=== PATIENT | female | born 1950 | race Caucasian/White ===

== ENCOUNTER 2016-12-17 00:05 | Emergency (ER) | payer MEDICARE ==
[2016-12-17] MEDS ORDERED: DUONEB INH ONE (00:44)
== END 2016-12-17 06:19 ==
LOC: ER 00:05
DX: J40 Bronchitis, not specified as acute or chronic (principal); J44.1 Chronic obstructive pulmonary disease with (acute) exacerbation; Z79.899 Other long term (current) drug therapy; Z79.82 Long term (current) use of aspirin; R06.00 Dyspnea, unspecified; J90 Pleural effusion, not elsewhere classified; J98.11 Atelectasis; J18.9 Pneumonia, unspecified organism; Z79.4 Long term (current) use of insulin; Z79.01 Long term (current) use of anticoagulants
CPT/HCPCS: 36415; 36600; 71010; 80053; 82553; 82803; 83880; 84484; 85025; 85610; 85730; 93005; 94640

== ENCOUNTER 2016-12-31 13:03 | Inpatient (IN) | payer MEDICARE ==
[~2016-12-31] VITALS: Ht 149.9 cm; Wt 88.0 kg
[2016-12-31] MEDS ORDERED: ACETAMINOPHEN 325 MG TAB ONE (13:29)
[2016-12-31] MEDS ORDERED: CEFTRIAXONE 1 GM VIAL ONE (16:49)
[2016-12-31] MEDS ORDERED: SODIUM CHLORIDE 0.9% 1,000 ML ONE (16:49)
[2016-12-31] MEDS ORDERED: METRONIDAZOLE 500 MG TAB ONE (17:48)
[2016-12-31] MEDS ORDERED: BISACODYL 10 MG SUPP RECTAL PRN (18:40)
[2016-12-31] MEDS ORDERED: SALINE FLUSH 10 ML FLUSH PRN (18:40)
[2016-12-31] MEDS ORDERED: ONDANSETRON 4 MG VIAL IV PRN (18:40)
[2016-12-31] MEDS ORDERED: ALU/MAG/SIM 30 ML UDC PO PRN (18:40)
[2016-12-31] MEDS ORDERED: MAG HYDROX 30 ML UDC PO PRN (18:40)
[2016-12-31] MEDS ORDERED: BISACODYL EC 5 MG TAB PO PRN (18:40)
[2016-12-31] MEDS ORDERED: GLUCAGON 1 MG VIAL IM PRN (18:50)
[2016-12-31] MEDS ORDERED: DEXTROSE 50% SYRINGE 50 ML IV PRN (18:50)
[2016-12-31] MEDS: SODIUM CHLOR 0.9% W/KCL 20MEQ 1,000 ML IV SCH (19:43)
[2016-12-31] MEDS: SALINE FLUSH 10 ML FLUSH SCH (20:00)
[2016-12-31 20:35] VITALS: BP_SYST 150; RESP 18; TEMP 101
[2016-12-31 20:43] VITALS: BMI 40.2
[2016-12-31 20:59] VITALS: RESP 18
[2016-12-31] MEDS: ACETAMINOPHEN 325 MG TAB PO PRN (21:14)
[2016-12-31] MEDS: METRONIDAZOLE 500MG/100ML 100 ML IV SCH (23:29)
[2017-01-01] VITALS (19 sets, daily range): BP systolic 112–164; RESP 15–24; TEMP 98–101.1; Ht 149.9 cm; Wt 88.0 kg
[2017-01-01] MEDS: NEB-ALBUTEROL 2.5 MG/3 ML INH PRN ×2 (04:37→14:08)
[2017-01-01] MEDS: SODIUM CHLORIDE 0.9% FLUSH BAG 500 ML IV SCH (06:00)
[2017-01-01] MEDS: SODIUM CHLOR 0.9% W/KCL 20MEQ 1,000 ML IV SCH (06:03)
[2017-01-01] MEDS: METRONIDAZOLE 500MG/100ML 100 ML IV SCH (06:03)
[2017-01-01] MEDS: ACETAMINOPHEN 325 MG TAB PO PRN (06:04)
[2017-01-01] MEDS ORDERED: ACETAMINOPHEN 325 MG TAB PO PRN ×2 (07:15→19:15)
[2017-01-01] MEDS: SALINE FLUSH 10 ML FLUSH SCH ×2 (07:49→23:48)
[2017-01-01] MEDS ORDERED: KCL 20 MEQ/15 ML UDC GTUBE ONE (08:20)
[2017-01-01] MEDS ORDERED: CEFTRIAXONE 1 GM in SODIUM CHLORIDE 0.9% 50 ML IV SCH (09:00)
[2017-01-01] MEDS ORDERED: FUROSEMIDE 10 MG/ML GTUBE SCH (09:00)
[2017-01-01] MEDS: LEVEMIR INSULIN SUBQ SCH (09:15)
[2017-01-01] MEDS: FAMOTIDINE 20 MG TAB PO SCH ×2 (09:15→21:00)
[2017-01-01] MEDS: ASPIRIN 81 MG CHEW TAB GTUBE SCH (09:15)
[2017-01-01] MEDS: VANCOMYCIN SUSP 250 MG/5 ML UDC PO SCH ×4 (09:16→21:00)
[2017-01-01] MEDS: SACCHA BOULARDII 250MG CAP PO SCH ×3 (09:16→21:00)
[2017-01-01] MEDS: ESCITALOPRAM 10 MG TAB GTUBE SCH (09:16)
[2017-01-01] MEDS: DUONEB INH PRN ×2 (11:04→19:07)
[2017-01-01] MEDS: ALPRAZOLAM 0.25 MG TAB GTUBE PRN (12:05)
[2017-01-01] MEDS ORDERED: STOP IV XX SCH (15:15)
[2017-01-01] MEDS: KCL 20 MEQ/15 ML UDC GTUBE SCH ×2 (16:59→23:49)
[2017-01-01] MEDS ORDERED: LIDOCAINE 2% 20 ML ONE (20:15)
[2017-01-01] MEDS ORDERED: MISSING DOSE XX ONE (20:50)
[2017-01-01] MEDS ORDERED: OPTIRAY 350 100 ML VIAL HMH IV ONE (22:26)
[2017-01-01] MEDS ORDERED: ALU/MAG/SIM 30 ML UDC GTUBE PRN (22:40)
[2017-01-01] MEDS ORDERED: *PATIENT RECEIVING TUBE FEEDS, ASSESS/ADJUST MEDICATIONS JTUBE SCH (22:40)
[2017-01-01] MEDS ORDERED: ACETAMINOPHEN 325 MG TAB GTUBE PRN (22:45)
[2017-01-01] MEDS: NEB-NACL 3% 4 ML NEBU INH SCH (23:13)
[2017-01-01] MEDS: NEB-ALBUTEROL 2.5 MG/3 ML INH SCH (23:13)
[2017-01-01] MEDS: VANCOMYCIN SUSP 250 MG/5 ML UDC GTUBE SCH (23:50)
[2017-01-02] VITALS (18 sets, daily range): BP systolic 125–168; RESP 14–29; TEMP 98.2–99.6
[2017-01-02] MEDS: NEB-NACL 3% 4 ML NEBU INH SCH ×4 (05:18→23:27)
[2017-01-02] MEDS: NEB-ALBUTEROL 2.5 MG/3 ML INH SCH ×5 (05:18→23:27)
[2017-01-02] MEDS: SODIUM CHLORIDE 0.9% FLUSH BAG 500 ML IV SCH (06:00)
[2017-01-02] MEDS ORDERED: Furosemide 40 MG/4 ML VIAL IV ONE ×2 (07:20→07:50)
[2017-01-02] MEDS: SALINE FLUSH 10 ML FLUSH SCH ×2 (08:37→20:06)
[2017-01-02] MEDS: LEVEMIR INSULIN SUBQ SCH (08:38)
[2017-01-02] MEDS: FAMOTIDINE 20 MG TAB GTUBE SCH ×2 (08:38→20:07)
[2017-01-02] MEDS: SACCHA BOULARDII 250MG CAP GTUBE SCH ×3 (08:38→20:07)
[2017-01-02] MEDS: ASPIRIN 81 MG CHEW TAB GTUBE SCH (08:38)
[2017-01-02] MEDS: VANCOMYCIN SUSP 250 MG/5 ML UDC GTUBE SCH ×4 (08:39→20:06)
[2017-01-02] MEDS: ESCITALOPRAM 10 MG TAB GTUBE SCH (08:39)
[2017-01-02] MEDS: KCL 20 MEQ/15 ML UDC GTUBE SCH ×3 (08:39→20:08)
[2017-01-02] MEDS: ALPRAZOLAM 0.25 MG TAB GTUBE PRN ×2 (08:51→20:23)
[2017-01-02] MEDS: CHOLESTYRAMINE 4 GM PKT GTUBE SCH ×2 (09:35→20:08)
[2017-01-02] MEDS ORDERED: Furosemide 20 MG/2 ML VIAL IV SCH (12:00)
[2017-01-02] MEDS: ACETAMINOPHEN 650 MG/20.3 ML UDC GTUBE PRN (15:45)
[2017-01-02] MEDS: Furosemide 20 MG/2 ML VIAL IV SCH ×2 (17:22→23:40)
[2017-01-03 03:00] VITALS: BP_SYST 170; RESP 18; TEMP 98.9
[2017-01-03] MEDS: NEB-NACL 3% 4 ML NEBU INH SCH ×4 (05:06→22:43)
[2017-01-03] MEDS: NEB-ALBUTEROL 2.5 MG/3 ML INH SCH ×5 (05:06→22:43)
[2017-01-03] MEDS: SODIUM CHLORIDE 0.9% FLUSH BAG 500 ML IV SCH (05:59)
[2017-01-03 07:15] VITALS: BP_SYST 158; RESP 18; TEMP 98.7
[2017-01-03] MEDS: ACETAMINOPHEN 650 MG/20.3 ML UDC GTUBE PRN ×2 (08:04→15:48)
[2017-01-03] MEDS: CHOLESTYRAMINE 4 GM PKT GTUBE SCH ×3 (08:05→19:53)
[2017-01-03] MEDS: LEVEMIR INSULIN SUBQ SCH (08:05)
[2017-01-03] MEDS: ESCITALOPRAM 10 MG TAB GTUBE SCH (08:06)
[2017-01-03] MEDS: ASPIRIN 81 MG CHEW TAB GTUBE SCH (08:06)
[2017-01-03] MEDS: FAMOTIDINE 20 MG TAB GTUBE SCH ×2 (08:06→19:51)
[2017-01-03] MEDS: Furosemide 20 MG/2 ML VIAL IV SCH (08:06)
[2017-01-03] MEDS: SACCHA BOULARDII 250MG CAP GTUBE SCH ×3 (08:06→19:51)
[2017-01-03] MEDS: VANCOMYCIN SUSP 250 MG/5 ML UDC GTUBE SCH ×4 (08:06→19:51)
[2017-01-03] MEDS: SALINE FLUSH 10 ML FLUSH SCH ×2 (08:07→19:51)
[2017-01-03] MEDS: KCL 20 MEQ/15 ML UDC GTUBE SCH ×2 (08:07→19:52)
[2017-01-03] MEDS: ALPRAZOLAM 0.25 MG TAB GTUBE PRN ×2 (08:10→19:51)
[2017-01-03 11:36] VITALS: BP_SYST 144; RESP 18; TEMP 98.1
[2017-01-03 15:29] VITALS: BP_SYST 148; RESP 20; TEMP 97.8
[2017-01-03] MEDS: Furosemide 20 MG TAB GTUBE SCH (15:49)
[2017-01-03 20:05] VITALS: BP_SYST 142; RESP 18; TEMP 99
[2017-01-03 23:00] VITALS: BP_SYST 144; RESP 18; TEMP 99.4
[2017-01-04] MEDS: NEB-ALBUTEROL 2.5 MG/3 ML INH SCH ×4 (02:47→14:55)
[2017-01-04 04:05] VITALS: BP_SYST 160; RESP 20; TEMP 98.1
[2017-01-04] MEDS: SODIUM CHLORIDE 0.9% FLUSH BAG 500 ML IV SCH (06:00)
[2017-01-04] MEDS: NEB-NACL 3% 4 ML NEBU INH SCH ×2 (06:23→10:55)
[2017-01-04 07:11] VITALS: BP_SYST 164; RESP 20; TEMP 97.2
[2017-01-04] MEDS: ASPIRIN 81 MG CHEW TAB GTUBE SCH (08:16)
[2017-01-04] MEDS: ALPRAZOLAM 0.25 MG TAB GTUBE PRN (08:16)
[2017-01-04] MEDS: FAMOTIDINE 20 MG TAB GTUBE SCH (08:16)
[2017-01-04] MEDS: Furosemide 20 MG TAB GTUBE SCH ×2 (08:16)
[2017-01-04] MEDS: SACCHA BOULARDII 250MG CAP GTUBE SCH (08:16)
[2017-01-04] MEDS: ESCITALOPRAM 10 MG TAB GTUBE SCH (08:16)
[2017-01-04] MEDS: LEVEMIR INSULIN SUBQ SCH (08:17)
[2017-01-04] MEDS: CHOLESTYRAMINE 4 GM PKT GTUBE SCH (08:17)
[2017-01-04] MEDS: KCL 20 MEQ/15 ML UDC GTUBE SCH (08:17)
[2017-01-04] MEDS: SALINE FLUSH 10 ML FLUSH SCH (08:18)
[2017-01-04] MEDS: VANCOMYCIN SUSP 250 MG/5 ML UDC GTUBE SCH ×2 (08:23→12:54)
[2017-01-04 11:52] VITALS: BP_SYST 154; RESP 18; TEMP 98.8
[2017-01-04 14:49] VITALS: BP_SYST 154; RESP 18; TEMP 98.8
== END 2017-01-04 17:22 | DRG 371 ==
LOC: ENRESERVTM → ENRESERVDT → ER 13:03 → EMR 18:13 → 4NT 19:32 → ENPENDDIS 01-01 08:26 → OBSVTOIN 01-01 08:26 → ICU 01-01 20:03 → 4THW 01-02 15:00
PROVIDERS: ADMIT Family Medicine; ATTEND Family Medicine
PROC: 0B21XFZ Change Tracheostomy Device in Trachea, External Approach (ICD-10-PCS; principal; 2017-01-01)
PROC: 0B958ZX Drainage of Right Middle Lobe Bronchus, Via Natural or Artificial Opening Endoscopic, Diagnostic (ICD-10-PCS; 2017-01-01)
PROC: 0B988ZX Drainage of Left Upper Lobe Bronchus, Via Natural or Artificial Opening Endoscopic, Diagnostic (ICD-10-PCS; 2017-01-01)
DX: A04.7 Enterocolitis due to Clostridium difficile (principal); I50.33 Acute on chronic diastolic (congestive) heart failure; J96.21 Acute and chronic respiratory failure with hypoxia; Z93.0 Tracheostomy status; E46 Unspecified protein-calorie malnutrition; J96.22 Acute and chronic respiratory failure with hypercapnia; N39.0 Urinary tract infection, site not specified; Z68.41 Body mass index [BMI] 40.0-44.9, adult; J44.9 Chronic obstructive pulmonary disease, unspecified; E86.0 Dehydration; E87.6 Hypokalemia; E11.9 Type 2 diabetes mellitus without complications; Z93.1 Gastrostomy status; Z74.01 Bed confinement status; Z79.82 Long term (current) use of aspirin; Z79.4 Long term (current) use of insulin
CPT/HCPCS: 31720; 36415; 71010; 71260; 80048; 80053; 81001; 82803; 82947; 83605; 83630; 83735; 83880; 84100; 84145; 85025; 87040; 87045; 87046; 87071; 87088; 87102; 87116; 87177; 87205; 87206; 87493; 87804; 89051; 93306; 94640; 99219; 99232; 99233; 99239; 99291